=== PATIENT | female | born 1950 | race Caucasian/White ===

== ENCOUNTER 2018-02-19 03:45 | Inpatient (IN) | payer OTHER ==
[~2018-02-19] VITALS: Ht 160 cm; Wt 95.7 kg
[2018-02-19 05:11] VITALS: BP 146/77
[2018-02-19 06:01] LABS: HEMATOCRIT 34.1 % (37.0-47.0); HEMOGLOBIN 11.3 gm/dL (12.0-15.0); MCH 28.2 pg (26.0-34.0); MCV 85.4 fL (80.0-100.0); RBC 3.99 mil/uL (4.20-5.00); WBC 12.5 thou/uL (4.0-11.0)
[2018-02-19 06:14] LABS: ANION GAP 7 mmol/L (7-16); BUN 18 mg/dL (7-18); CALCIUM 8.9 mg/dL (8.5-10.1); CHLORIDE 103 mmol/L (98-107); CHOLESTEROL 152 mg/dL (<200); CO2 29 mmol/L (21-32); CREATININE 1.3 mg/dL (0.6-1.0); GLUCOSE 128 mg/dL (74-106); HDL CHOLESTEROL 65 mg/dL (>40); LDL CHOLESTEROL 79 mg/dL (<100); POTASSIUM 4.3 mmol/L (3.5-5.1); SODIUM 139 mmol/L (136-145); TC:HDL 2.3 Ratio (Not establshd); TRIGLYCERIDE 44 mg/dL (<150); VLDL 9 mg/dL (<40)
[2018-02-19 06:46] LABS: PROTIME 10.6 Seconds (9.3-11.4)
[2018-02-19 08:00] VITALS: BP 125/83
[2018-02-19] MEDS ORDERED: FLOMAX0.4 MG PO (10:04)
[2018-02-19] MEDS ORDERED: NORCO 5-325 TA1 EACH PO (10:05)
[2018-02-19 10:50] VITALS: BP 125/83
== END 2018-02-19 11:28 | disposition home or self-care (01) | DRG 694 ==
LOC: 4N 03:45 → ENTRNSPT 11:00 → EDTRNSPTSTS 11:06 → 4N 11:28
PROVIDERS: Nurse Practitioner Family
DX: N13.2 Hydronephrosis with renal and ureteral calculous obstruction (principal); I10 Essential (primary) hypertension; E78.5 Hyperlipidemia, unspecified; K21.9 Gastro-esophageal reflux disease without esophagitis; F32.9 Major depressive disorder, single episode, unspecified; F41.9 Anxiety disorder, unspecified; Z90.710 Acquired absence of both cervix and uterus; Z90.49 Acquired absence of other specified parts of digestive tract; Z85.3 Personal history of malignant neoplasm of breast; Z79.899 Other long term (current) drug therapy; Z80.0 Family history of malignant neoplasm of digestive organs
CPT/HCPCS: 10790